=== PATIENT | female | born 1960 | race American Indian/Alaskan Native ===

== ENCOUNTER 2017-12-25 09:34 | Outpatient (CLI) | payer MEDICARE ==
--- NOTE | 2017-12-26 16:02 | Mammography Report ---
BILATERAL DIGITAL SCREENING MAMMOGRAM with CAD : 12/25/17 09:34:00 CLINICAL: Routine screening. COMPARISON:05/08/13, 10/14/10 and 07/09/08 FINDINGS: The breasts are heterogeneously dense, which may obscure small masses.Bilateral parenchymal asymmetries are not significantly changed compared to prior exams. No mass, architectural distortion or suspicious calcifications. IMPRESSION: No mammographic evidence of malignancy. BI-RADS CATEGORY: 2 -- Benign RECOMMENDATION: Routine mammographic screening in one year. COMMENT: Patient follow-up letters are generated by our [employer] application.
== END 2017-12-25 09:35 | disposition home or self-care (01) ==
LOC: SPVWC 09:34
PROVIDERS: ATTEND Obstetrics & Gynecology
DX: Z12.31 Encounter for screening mammogram for malignant neoplasm of breast (principal)
CPT/HCPCS: 77067